=== PATIENT | female | born 1940 | race Hispanic/Latino ===

== ENCOUNTER 2023-11-01 06:57 | Day surgery (SDC) | payer MEDICARE ==
[2023-11-01] VITALS (11 sets, daily range): BP systolic 96–138; BP diastolic 42–56; PULSE 58–76; RESP 15–18
[~2023-11-01] VITALS: Ht 157.5 cm; Wt 61.2 kg
[~2023-11-01 06:57] MED LIST: ATEN50TA PO; ATOR10 PO; FURO40TA5 PO; INSU100I35 SQ; LOSA100T59 PO; METF-444 PO; METO10TA3 PO; OMEP40CA21 PO
[2023-11-01] MEDS: 0.9%NACL 1000ML 1,000 ML IV ONE (08:01)
[2023-11-01] MEDS ORDERED: PROPOFOL 10 MG/ML 20ML VIAL IV ONE (10:08)
== END 2023-11-01 12:20 | disposition home or self-care (01) ==
LOC: ENDO 06:57 → DAH 06:57 → ENDO 12:20
PROVIDERS: ATTEND Internal Medicine Gastroenterology
DX: R93.3 Abnormal findings on diagnostic imaging of other parts of digestive tract (principal); D50.9 Iron deficiency anemia, unspecified; R10.10 Upper abdominal pain, unspecified; K29.50 Unspecified chronic gastritis without bleeding; K21.00 Gastro-esophageal reflux disease with esophagitis, without bleeding; K31.89 Other diseases of stomach and duodenum; R19.7 Diarrhea, unspecified; I10 Essential (primary) hypertension; E11.43 Type 2 diabetes mellitus with diabetic autonomic (poly)neuropathy; E78.5 Hyperlipidemia, unspecified; K31.84 Gastroparesis; E78.00 Pure hypercholesterolemia, unspecified; Z90.49 Acquired absence of other specified parts of digestive tract; Z98.891 History of uterine scar from previous surgery; Z98.890 Other specified postprocedural states; Z98.49 Cataract extraction status, unspecified eye; Z79.84 Long term (current) use of oral hypoglycemic drugs; Z79.01 Long term (current) use of anticoagulants; Z79.899 Other long term (current) drug therapy
CPT/HCPCS: 82948 ×2; 43239; 45380; J7030 ×2; J2704; A4620; A4215; A4223; A7002; A4222; A4221; A4663; A4606; J3490